=== PATIENT | female | born 1980 | race Caucasian/White ===

== ENCOUNTER → 2022-03-06 11:29 | Outpatient (CLI) | payer OTHER, MEDICAID, SELFPAY ==
--- NOTE | 2022-03-06 11:30 | DI.MG.S_ITS ---
BILATERAL DIGITAL SCREENING MAMMOGRAM 3D/2D WITH CAD: 03/06/2022 CLINICAL: Routine screening. Baseline exam. No prior exams were available for comparison. Both breasts are heterogeneously dense, which may obscure small masses (category c / 51-75% glandular tissue). Current study was also evaluated with a Computer Aided Detection (CAD) system. No significant masses, calcifications, or other findings are seen in either breast. IMPRESSION: NEGATIVE There is no mammographic evidence of malignancy. A 1 year screening mammogram is recommended. Based on the Tyrer Cuzick model (a risk assessment model) the patient's lifetime risk is 11.7% and her 10 year risk is 1.6%. According to the ACR, ACS, and NCCN guidelines, an annual breast MRI exam along with mammogram is recommended if the patient's lifetime risk is 20% or greater. This exam was interpreted at Station ID: [id number]. NOTE: For mammograms, a report in lay terms will be sent to the patient. Approximately 15% of breast malignancies will not be visualized mammographically. In the management of a palpable breast mass, a negative mammogram must not discourage biopsy of a clinically suspicious lesion. Electronically Signed By: Raul Bower M.D., jr/gabriel:03/08/2022 11:22:31 letter sent: Normal Exam ACR BI-RADS Category 1: Negative 3341F
== END ==
PROVIDERS: PCP Family Medicine; Referring Provider Physician Assistant Medical; Visit Provider Physician Assistant Medical
DX: Z12.31 Encounter for screening mammogram for malignant neoplasm of breast (principal)
CPT/HCPCS: 77063; 77067

== ENCOUNTER → 2022-09-07 12:37 | Outpatient (CLI) | payer OTHER, MEDICAID, SELFPAY ==
--- NOTE | 2022-09-07 12:40 | DI.RAD.S_ITS ---
PROCEDURE: XR HAND RT MIN 3V INDICATIONS: thumb injury. Pain. TECHNIQUE: 3 views of the hand(s) acquired. COMPARISON: None. FINDINGS: Bones: No fractures or dislocations. Carpal bones are normally aligned. No suspicious bony lesions. Soft tissues: No suspicious soft tissue calcifications. IMPRESSION: No fracture. No osseous lesion. If symptoms and/or clinical suspicion for pathology persists, further assessment with repeat radiographs (7-10 days) or advanced imaging (e.g. CT, MRI or bone scan) should be considered. Dictated by: Latoya Chen MD, PhD on 09/07/2022 at 13:38 Approved by: Latoya Chen MD, PhD on 09/07/2022 at 13:39
== END ==
PROVIDERS: PCP Family Medicine; Referring Provider Nurse Practitioner Family; Visit Provider Nurse Practitioner Family
DX: S69.91XA Unspecified injury of right wrist, hand and finger(s), initial encounter (principal); X58.XXXA Exposure to other specified factors, initial encounter
CPT/HCPCS: 73130

== ENCOUNTER → 2023-05-20 11:03 | Outpatient (CLI) | payer OTHER, MEDICAID, SELFPAY ==
--- NOTE | 2023-05-20 11:05 | DI.MG.S_ITS ---
BILATERAL DIGITAL SCREENING MAMMOGRAM 3D/2D WITH CAD: 05/20/2023 CLINICAL: Routine screening. Comparison is made to exam dated: 03/06/2022 [facility]. Both breasts are extremely dense, which lowers the sensitivity of mammography (category d />75% glandular tissue). Current study was also evaluated with a Computer Aided Detection (CAD) system. No significant masses, calcifications, or other findings are seen in either breast. There has been no significant interval change. IMPRESSION: NEGATIVE There is no mammographic evidence of malignancy. A 1 year screening mammogram is recommended. Based on the Tyrer Cuzick model (a risk assessment model) the patient's lifetime risk is 17.3% and her 10 year risk is 2.6%. According to the ACR, ACS, and NCCN guidelines, an annual breast MRI exam along with mammogram is recommended if the patient's lifetime risk is 20% or greater. This exam was interpreted at Station ID: [id number]. NOTE: For mammograms, a report in lay terms will be sent to the patient. Approximately 15% of breast malignancies will not be visualized mammographically. In the management of a palpable breast mass, a negative mammogram must not discourage biopsy of a clinically suspicious lesion. Electronically Signed By: Darcy Coronado M.D., PH.D rodriguez/gabriel:05/21/2023 01:07:35 letter sent: Normal Exam ACR BI-RADS Category 1: Negative 3341F
== END ==
PROVIDERS: PCP Family Medicine; Referring Provider Family Medicine; Visit Provider Family Medicine
DX: Z12.31 Encounter for screening mammogram for malignant neoplasm of breast (principal)
CPT/HCPCS: 77063; 77067

== ENCOUNTER → 2023-05-23 13:23 | Outpatient (CLI) | payer OTHER, MEDICAID, SELFPAY ==
--- NOTE | 2023-05-23 13:25 | DI.US.S_ITS ---
PROCEDURE: US PELVIC COMPLETE INDICATIONS: Pelvic pain bilateral, dysmenorrhea, menorrhagia TECHNIQUE: Real-time scanning was performed of the pelvic organs, with image documentation. Additional endovaginal scanning was necessary due to incomplete visualization of the adnexal and endometrial structures by transabdominal scanning. COMPARISON: None. FINDINGS: Uterus: Uterus is anteverted and normal in size at 8.3 x 5.6 x 4.6 cm. The myometrium is homogeneous. The endometrium measures 9 mm combined thickness. Ovaries: The right ovary measures 2.3 x 2.2 x 1.4 cm. The left ovary measures 2.4 x 2.2 x 1.7 cm. The ovaries have a normal sonographic appearance. Less than 12 follicles can be seen in each ovary. No adnexal masses are seen. There is a dominant 1.7 cm follicle within the left ovary. Other: No pathologic free abdominal or pelvic fluid. IMPRESSION: 1. Unremarkable pelvic ultrasound in a premenopausal female. We strive to produce accurate, complete, and clear reports of imaging services. To assist us in improving patient care, this report was composed using standard report templates and voice recognition software. Therefore, it may contain abnormal punctuation, insertions and/or omissions. Occasional wrong-word or sound-alike substitutions may occur. Though we review the report and make efforts to correct it, we do recommend that the report be read carefully in proper context to recognize any text inaccuracies. Dictated by: Kindra Berry M.D. on 05/23/2023 at 15:23 Approved by: Kindra Berry M.D. on 05/23/2023 at 15:24
== END ==
PROVIDERS: PCP Family Medicine; Referring Provider Physician Assistant Medical; Visit Provider Physician Assistant Medical
DX: N92.0 Excessive and frequent menstruation with regular cycle (principal); N94.6 Dysmenorrhea, unspecified; R10.2 Pelvic and perineal pain
CPT/HCPCS: 76830; 76856; 93975

== ENCOUNTER → 2023-07-15 11:47 | Outpatient (CLI) | payer OTHER, SELFPAY ==
--- NOTE | 2023-07-15 11:48 | DI.RAD.S_ITS ---
PROCEDURE: XR LUMBAR SPINE 2-3V INDICATIONS: pain in back and hip TECHNIQUE: 3 views of the lumbar spine were acquired. COMPARISON: None. FINDINGS: Bones: 5 [id number] vertebrae are present. There is normal bony alignment. No vertebral body compression fractures. No suspicious bony lesions. Soft tissues: Overlying bowel gas pattern is normal. No suspicious soft tissue calcifications. IMPRESSION: No acute bony abnormality. Dictated by: Kindra Berry M.D. on 07/15/2023 at 16:33 Approved by: Kindra Berry M.D. on 07/15/2023 at 16:33
--- NOTE | 2023-07-15 11:48 | DI.RAD.S_ITS ---
PROCEDURE: XR PELVIS 1-2V INDICATIONS: pain in back and hip TECHNIQUE: Single view(s) of the pelvis acquired. COMPARISON: None. FINDINGS: Bones: No fractures or dislocations. No suspicious bony lesions. Soft tissues: Visualized bowel gas pattern is normal. No suspicious soft tissue calcifications. IMPRESSION: No acute bony abnormality. Dictated by: Kindra Berry M.D. on 07/15/2023 at 16:32 Approved by: Kindra Berry M.D. on 07/15/2023 at 16:32
== END ==
PROVIDERS: PCP Family Medicine; Referring Provider Family Medicine; Visit Provider Family Medicine
DX: R10.2 Pelvic and perineal pain (principal); M54.50 Low back pain, unspecified; G89.29 Other chronic pain
CPT/HCPCS: 72100; 72170

== ENCOUNTER 2023-08-25 11:19 | Day surgery (SDC) | payer OTHER, SELFPAY ==
[2023-08-23 08:25] VITALS: BMI 20.7
[2023-08-25] VITALS (10 sets, daily range): BP systolic 102–116; BP diastolic 49–72; PULSE 59–86; RESP 12–18; TEMP 36.6–37.1; O2SAT 95–100; BMI 20.5
--- NOTE | 2023-08-25 | PATH_ITS ---
[facility] Accession Number: [id number] No. of containers..02 Tissue . 01 Material submitted: . PART A: fallopian tube - BILATERAL FALLOPIAN TUBES PART B: endometrium - ENDOMETRIAL CURETTINGS . 01 Diagnosis: A. BILATERAL FALLOPIAN TUBES, SALPINGECTOMY: Complete cross section of bilateral fimbriated fallopian tubes with benign paratubal cysts. . B. ENDOMETRIUM, CURETTINGS: Proliferative endometrium. No atypical hyperplasia, and no malignancy. MRV 08/31/2023 1334 Local . 01 Electronically signed: . Vicki Mckay MD, Pathologist NPI- [id number] . 01 Gross description: . A. Received in formalin, labeled with the patient's name, , and bilateral fallopian tubes, and consists of two, unoriented, fimbriated fallopian tubes measuring 6.5 x 0.6 cm and 6.7 x 0.8 cm, respectively. Both tubes have violaceous, smooth serosa with cystic structures ranging from 0.1 to 1.0 cm in greatest dimension, filled with kincaid serous fluid. Sectioning reveals unremarkable stellate lumen. Mechanical Engineering Lecturer sections to include one-half of bisected fimbriae and cross sections are submitted as follows: A1: Longer fallopian tube. A2: Mitchells fallopian tube. B. Received in formalin, labeled with the patient's name, , and endometrial curetting, and consists of multiple, kincaid, soft tissue fragments admixed with mucohemorrhagic material aggregating to 2.5 x 1.7 x 0.2 cm. Filtered and submitted entirely in cassette B1. ([id number]) /MRV 08/26/2023 1452 Local . 01 Pathologist provided ICD-10: N93.9, Z30.2 . 01 CPT . 282082, 728373 Specimen Comment: A courtesy copy of this report has been sent to [phone] Performed at: 01 [facility] [address] [place] [address] [id number] MD Fco Prado MD Phone: [phone]
[2023-08-25] MEDS: ACETAMINOPHEN 325 MG TABLET 975 MG PO (11:52)
[2023-08-25] MEDS: SCOPOLAMINE 1 PATCH TOP (12:00)
[2023-08-25] MEDS: LACTATED RINGERS 1,000 ML 42 ML IV ×2 (12:03→14:53)
--- NOTE | 2023-08-25 12:34 | SUR.OPER ---
Lithotomy on padded OR bed, head on pillow, arms padded and tucked at sides. Legs secured in padded yellow fins stirrups.
--- NOTE | 2023-08-25 13:02 | PM.PREOP ---
Pre-operative Note Interval Note History & Physical reviewed/Exam performed by Physician: Yes Changes to H&P: No H&P completed within 30 days and has changed as indicated here:: 08/17/23
[2023-08-25] MEDS: CEFAZOLIN 2 GM/100 ML PREMIX 100 ML IV (13:12)
[2023-08-25] MEDS: BUPIVACAINE 0.5% (PF) 30 ML, EPINEPHrine 0.15 MG INJ (13:40)
--- NOTE | 2023-08-25 16:07 | PM.GYNOP.1 ---
Operative Date/Time/Diagnoses Date of procedure: 08/25/23 Time of procedure: 16:07 Pre-op diagnosis: Pelvic pain Desires permanent sterilization Menorrhagia Symptomatic cystocele and rectocele Left labial cyst Post-op diagnosis: same Procedure & Clinicians Procedure: Procedures Operation Date: 08/25/23 12:30 Actual Procedure Side Surgeon melissa Diehl Laparoscopy, bilateral salpingectomy,fulgeration of endometriosis, excision left labial cyst, D&C, hysteroscopy with endometrial novasure ablation Nelia Mcgee MD s Anterior/Posterior Repair, sacrospinous ligament fixation, perineorhaphy Not Applicable Nelia Mcgee MD Indications: 42-year-old 5 para 3 with pelvic pain, desires permanent sterilization, has menorrhagia, and has a symptomatic cystocele and rectocele. Surgeon: Nelia Mcgee Package Dyeing Machine Operator: Lyndsey Cottrell Anesthesia Type: General and Local Operative Notes Findings: Endometriosis of the posterior cul de sac and left uterosacral ligament Normal uterus, tubes and ovaries Normal appendix Normal liver and gallbladder Third degree cystocele Third degree rectocele Second degree uterine prolapse Closure Type: primary Specimen(s): left tube and right tube Applied: catheter (to continuous drainage) and other (betadine moistened vaginal packing ) Estimated blood loss (mL): 75 Blood products transfused: none Procedure in detail: The patient was taken to the operating room where she was placed in the dorsal supine position. After adequate general endotracheal anesthesia was achieved, she was placed in the dorsal lithotomy position, and prepped and draped in the usual sterile fashion. A time-out was performed. A bivalve speculum was placed into the vagina and the anterior lip of the cervix was grasped with a single-tooth tenaculum. The cervical os was sequentially dilated until the Zumi uterine manipulator could pass easily into the endometrial cavity. The single-tooth tenaculum was removed from the anterior lip of the cervix. The bivalve speculum was removed from the vagina. Attention was then turned to the abdomen where 4 cc of 0.25% Marcaine with epinephrine were injected in the umbilical fold. A 5 mm incision was made. The Veress needle was placed into the peritoneal cavity, and its placement confirmed by aspiration and drop test. The abdominal cavity was insufflated with 3 L of CO2. The Veress needle was removed, and a 5 mm trocar was placed without difficulty. Two other incisions were made 4 cm lateral to the midline after 4 cc of 0.25% Marcaine with epinephrine were injected. Two 5 mm trocars were placed under direct visualization. The pelvis and abdomen were examined with findings noted above. The right tube was grasped with an atraumatic grasper. Using the power seal, the mesosalpinx was cauterized and cut all the way down to the cornua of the uterus. The tube was removed through the right lateral trocar. The left tube was then grasped with an atraumatic grasper. Using the power seal, the mesosalpinx was cauterized and cut all the way down to the cornua of the uterus. The tube was removed through the left lateral trocar. Hemostasis was achieved. There was found to be proximally 7 endometriotic lesions in the posterior cul-de-sac on the right side and on the left uterosacral ligament. These were cauterized with the spatula cautery. The instruments were removed from the abdomen. The CO2 was allowed to escape. The incisions were closed with 4-0 Monocryl in a subcuticular fashion. Steri-Strips and Allevyn dressings were placed. Attention was then turned to the vagina where the Zumi uterine manipulator was removed from the uterus. A weighted speculum was placed into the vagina. Narrow Allis clamps were placed at the base of the cystocele. 5 cc of 0.25% Marcaine with epinephrine were injected between the 2 Allis clamps and an incision was made with a #10 blade. Wide Allis clamps were placed at the midline of the cystocele. 10 cc of 0.25% Marcaine with epinephrine were injected submucosally. The mucosa was undermined and excised in the midline moving the wide Allis clamps to the edges of the mucosa. The fascia was dissected off of the mucosa using a # 10 blade and an open moistened Ray-Bry. The fascia was reapproximated with 0 Vicryl with mattress sutures. The excess vaginal mucosa was excised. The mucosa was closed with simple interrupted sutures using 2-0 Vicryl including the underlying fascia to close the space. Hemostasis was achieved. The urine was clear. The weighted speculum was removed from the vagina. Narrow Allis clamps were placed at the mucocutaneous junction. 6 cc of 0.25% Marcaine with epinephrine were injected between the 2 Allis clamps along the perineum. A triangular piece of tissue was excised between the 2 Allis clamps extending down onto the perineal body. Wide Allis clamps were placed in the midline of the rectocele. 10 cc of 0.25% Marcaine with epinephrine were injected submucosally. The mucosa was undermined with the Metzenbaum scissors and the wide Allis clamps were moved to the mucosal edges. The fascia was dissected off of the mucosa using a #10 blade and an open moistened Ray-Bry. The right sacral spinous ligament was identified and using blunt dissection was cleared of adventitia. Using the Capio needle, the Prolene suture was placed into the right sacral spinous ligament, 2 fingerbreadths away from the spine. This was tagged with a hemostat. The other end of the suture with a curved needle was placed into the cervix at the 8 o'clock position. This was included in the tag. The posterior fascia was reapproximated with 0 Vicryl in mattress sutures. After 3-4 of those were placed, the sacral spinous ligament tag was tied down suspending the cervix. The sutures were cut. The remainder of the fascia was reapproximated. The excess vaginal mucosa was excised. The mucosa was reapproximated with simple interrupted sutures with 2-0 Vicryl including the underlying fascia to close the space. At the perineum 0 Vicryl was placed to approximate the levators. The perineum was closed with 2-0 Vicryl with simple interrupted sutures. The skin was closed with 2-0 Vicryl in simple interrupted sutures. Hemostasis was achieved. A Betadine moistened vaginal packing was placed into the vagina after a rectal exam was performed and there were no sutures palpable. The urine remained clear. Sponge, lap, and instrument counts were correct x2. The patient tolerated the procedure well, and was taken to PACU in stable condition. Complications: none Post-operative Condition: stable Disposition: PACU Plan for aftercare: To Acute Care after recovery
[2023-08-25] MEDS: OXYCODONE IR 5 MG TABLET PO ×2 (16:41→20:10)
[2023-08-25] MEDS: KETOROLAC 30 MG/ML VIAL IV ×2 (16:41→22:34)
[2023-08-25] MEDS: ACETAMINOPHEN 325 MG TABLET 650 MG PO ×2 (16:41→22:34)
[2023-08-25] MEDS: LACTATED RINGERS 1,000 ML 100 ML IV (16:42)
[2023-08-25] MEDS: ONDANSETRON 4 MG/2 ML INJ IV (16:42)
[2023-08-25] MEDS: DOCUSATE 100 MG CAPSULE 200 MG PO (20:11)
[2023-08-26] VITALS: BP 98/52; PULSE 65; RESP 16; TEMP 37.1; O2SAT 96
[2023-08-26] MEDS: KETOROLAC 30 MG/ML VIAL IV ×2 (05:45→10:54)
[2023-08-26] MEDS: ACETAMINOPHEN 325 MG TABLET 650 MG PO ×2 (05:46→10:54)
[2023-08-26 06:00] VITALS: BP 94/34; PULSE 73; RESP 16; TEMP 37.1; O2SAT 98
[2023-08-26 06:53] LABS: Add Manual Diff / Slide Review NO; Basophils Absolute Auto 0 /uL (0-100); Basophils Percent Auto 0.1 % (0-2); Eosinophils Absolute Auto 0 /uL (0-450); Hematocrit 34.4 % (36-46); Hemoglobin 11.5 g/dL (12.0-16.0); Lymphocytes Absolute Auto 2000 /uL (1100-4500); Mean Corpuscular HGB Conc 33.5 % (30-36); Mean Corpuscular Volume 89.7 fL (80-100); Monocytes Absolute Auto 700 /uL (0-900); Monocytes Percent Auto 6.3 % (3-14); Neutrophils Absolute Auto 8600 /uL (1500-7000); Neutrophils Percent Auto 75.6 % (50-75); Platelet Count 225 X10^3/uL (150-400); Red Blood Cell Count 3.83 X10^6/uL (4.0-5.2); Red Cell Distribution Width 13.3 % (11.6-14.8); White Blood Cell Count 11.3 X10^3/uL (4.5-11.0)
[2023-08-26 08:16] VITALS: BP 98/54; PULSE 50
[2023-08-26] MEDS: DOCUSATE 100 MG CAPSULE 200 MG PO (09:11)
--- NOTE | 2023-08-26 11:26 | PC.NURSE ---
Addendum entered by Shaneka Payton R.N. 08/26/23 12:04: Void at 1145 500mls PVR 3 Original Note: Void at 0800 175mls PVR 1 Void at 1000 200mls PVR 9
[2023-08-26 12:02] VITALS: BP 96/54; PULSE 58; RESP 18; TEMP 36.4; O2SAT 97
--- NOTE | 2023-08-26 13:25 | CM.DANOTE ---
Initial DCP Assessment Visit Reviewed EMR and team rounds for pt's medical status. Met with pt/spouse at bedside to introduce self and role. Pt found to be awake, dressed, and ready for d/c home within the next hour. She shares that she is comfortable and will have her to continue to help with her care/needs as she recovers post-op over the next several days. He will transport her home once the d/c order is ready. Payor: Alfredo Attending: Dr. Mcgee Pt is a 42 year-old F placed in OPB following her planned diagnostic laparoscopy/salpingectomy surgery. She has a PMH of menorrhagia, dysmenorrhea, left overain pain, and cystocele/rectorcele that have been symptomatic. She is recovering well and declines any d/c needs or in home support/resources. DCP will follow for any further evolving needs until she discharges. Discharge Planning/Care Management CM Discharge Assessment Start: 08/26/23 13:18 Freq: Status: Active Protocol: Document 08/26/23 13:18 DPL (Rec: 08/26/23 13:25 DPL [id number]) Discharge Planning Assessment Assigned Applications Packager CHRISTIE Eduardo Advance Directives? No History Provided By Patient,Medical Record Has Patient been admitted in last 30 No days? Prior Living Arrangements House Household Members spouse,children Type of transporation used prior to Drives own vehicle admit Independent with ADL's Yes Is patient alert and oriented? Yes Comment N/A Caregiver for Another Yes: children Comment N/A Comment No identified needs at this time. Comment OP surgery f/u. Barriers to Discharge No Discharge Plan Home Transportation Arrangement Spouse Referrals Initiated None needed Whiteboard Updated in Patient Room with Yes name and ext. # of Applications Packager Review Status In Process Please Provide Date Initial DC 08/26/23 Assessment Was Performed Pre-Anesthesia Assessment Start: 08/23/23 08:25 Freq: Status: Active Protocol: Document 08/23/23 08:25 CAB (Rec: 08/23/23 08:43 CAB [id number]) Pre-Anesthesia Assessment Patient Information Reviewed Via Chart Review Primary Care Provider John Post Seen Specialist in Last 12 Months Yes Specialist Seen Core Sticker Primary Language Gibraltarian Lamp Tester And Inspector Required No Height 165.1 cm Weight 56.699 kg Body Mass Index (BMI) 20.7 Barriers to Learning None Hx Anesthesia Reactions Pt does not have a previous surgical history Anesthesia Review Requested No School Cook No alcohol intake current Smoking Status Former smoker how long ago did patient quit smoking Quit 2019 Substance Use Type does not use History of Falling (Recent or History of No ) Patient is completely paralyzed or No completely immobile Mental Status Oriented to own ability Is patient on oxygen? No Hx Sleep Apnea No Currently Taking a Beta Tyson No Anti-Coagulant Therapy No Has a Forest Logistics Manager No Cardiac Testing No Hx Pacemaker/ICD No Pacemaker Rep Required? No Cardiac Clearance Received Not Applicable Urinary Catheter Present No Hx Urinary Self Catheterization No Diabetes No Patient No Lactating No Marital Status Lives With spouse,children Patient Discharge Plan Description Return Home
[2023-08-26] MEDS: OXYCODONE IR 5 MG TABLET PO (14:21)
--- NOTE | 2023-08-26 18:09 | PC.NURSE ---
Discharge: Pt has been up and amb in room. See other note for voids and PVR. Seen by MD and discharge instructions reviewed. Given packet and questions answered. Tolerates diet w/out problems. Voids w/out diff. Dressings are c/d/i to abd, received wound care instructions from MD. Pt did end up needing to take an oxycodone prior to leaving. This was effective for pain. Pt d/c to home via auto w/spouse. Voiced no concerns at time of d/c.
--- NOTE | 2023-09-07 22:40 | PM.DS.1 ---
History of Present Illness History of Present Illness Date Patient Seen: 08/26/23 Time Patient Seen: 13:30 Chief complaint: OPB Narrative: 42 year old POD #1. Discharge Providers Provider Discharge Date: 08/26/23 Primary care physician: John Post DO Discharge provider: Nelia Mcgee MD Summary Hospital Course Discharge Diagnosis: Pelvic pain Desires permanent sterilization Symptomatic cystocele and rectocele Left labial cyst Menorrhagia Diagnostic laparoscopy with fulguration of endometriosis D&C hysteroscopy with NovaSure endometrial ablation Anterior and posterior repair Sacral spinous ligament fixation Left labial cyst excision Hospital Course: Patient is a 42-year-old who presented on August 25, 2023 for scheduled diagnostic laparoscopy with possible fulguration of endometriosis, left labial cyst excision, D and C hysteroscopy with NovaSure endometrial ablation, anterior and posterior repair, sacral spinous ligament fixation. She underwent this procedure without complication. On postop day #1 patient was having some moderate pain in the morning. She was tolerating a diet. No nausea or vomiting. She voided with minimal postvoid residuals. By afternoon her pain was more manageable. And she was discharged home. Status at Discharge Cognitive/behavioral status at discharge: oriented Functional status at discharge: independent ambulation Overall status at discharge: patient is progressing back to baseline Time Spent with Patient Time spent: Less than 30 minutes Exam Vital Signs (past 8 hours): Oxygen Delivery Method Room Air Oxygen Flow Rate 0 Narrative Exam Narrative: Generally: Patient is sitting up in bed, no acute distress Lungs: Clear to auscultation bilaterally Cardiovascular: Regular rate and rhythm Abdomen: Soft and flat. Incision: Clean dry and intact with Allevyn dressings Extremities: No edema, negative Homans Objective Labs 08/26/23 05:45 PFSH Medical History (Updated 07/07/23 @ 11:41 by John Post DO) Lumbar region somatic dysfunction Segmental and somatic dysfunction of abdomen and other regions Uterine prolapse Pain in pelvis Sacral region somatic dysfunction Pelvic somatic dysfunction Chronic left-sided low back pain without sciatica Lump of right wrist Vertigo Painful menstrual periods Heavy menstrual period H/O hordeolum Left foot pain Surgical History (Updated 08/23/23 @ 08:42 by Samanta Chacon RN) No history of previous surgery Social History household members: spouse and children Smoking Status: Former smoker alcohol intake: current Discharge Assessment & Plan Assessment and Plan Assessment: Postop day # 1 doing very well Plan of Treatment: Discharge to home Follow-up 2 weeks Discharge Plan Discharge Plan Patient Disposition: Home Provider Discharge Comment: Call with fever, chills, redness or drainage around the incisions, or bleeding vaginally more than spotting to light Ibuprofen 600 mg every 6 hours Tylenol 650 mg every 6 hours Stool softeners until bowel returns to normal Use Argelia bottle when urinating to dilute the concentrated urine away from the suture lines Nursing Discharge Comment: May start Ibuprophen at 5:00pm. Discharge orders & Medications Discharge Orders: Discharge (Order); Ordered 08/26/23 Ordered By: Nelia Mcgee Prescriptions: Continued polymyxin B sulf-trimethoprim 10,000 unit- 1 mg/mL drops 2 drp EYE-BOTH QID Qty: 10 0RF cholecalciferol (vitamin D3) 100 mcg (4,000 unit) Capsule 1,000 unit PO DAILY turmeric 400 mg Capsule 400 mg PO DAILY ashwagandha root extract 500 mg Capsule 500 mg PO DAILY No Action oxycodone 5 mg tablet 5 mg PO Q4H PRN (Reason: pain) Qty: 20 0RF amoxicillin-pot clavulanate 875-125 mg tablet 1 tab PO BID Qty: 20 0RF ondansetron 4 mg tablet,disintegrating 4 mg PO Q6H PRN (Reason: nausea and vomiting) Qty: 10 0RF phenazopyridine [Pyridium] 100 mg tablet 100 mg PO TID PRN (Reason: pain) Qty: 10 0RF Medication counseling provided by Pharmacist: Yes Follow up/Referrals: Nelia Mcgee MD [Physician] - (Patient has postop visits already scheduled) Diet/Activity/Treatments Diet: Regular Activity: No heavy lifting for 6 weeks, nothing more than a gallon of milk Nothing in the vagina for 6 weeks Skin/Wound/Dressing Care Report to your healthcare provider any signs of infection, such as:: chills, fever, increased pain, unusual drainage and unusual redness Dressing: Remove outer pink dressings with attached gauze on Tuesday morning after a shower May shower daily Visit Report/Discharge Packet Instructions: Constipation, DI for Cystocele and Rectocele Repair, DI for Laparoscopy, How to Prevent Falls, DI for Endometrial Ablation, DI for Prescription Opioid Use, DI for Sacrospinous Fixation, DI for Laparoscopic Salpingectomy Stand Alone Forms: Patient Portal/API, Stroke Signs & Symptoms, Surgery Discharge Discharge Data Primary Care Provider: John Post Attending Provider: Nelia Mcgee
== END 2023-08-26 15:00 | disposition home or self-care (01) ==
LOC: OR 11:19 → AC 11:20
PROVIDERS: PCP Family Medicine; Referring Provider Obstetrics & Gynecology; Visit Provider Obstetrics & Gynecology
PROC: 0U5B4ZZ Destruction of Endometrium, Percutaneous Endoscopic Approach (ICD-10-PCS; CPT 58662; principal; 2023-08-25 12:30)
PROC: (CPT 57282; 2023-08-25 12:30)
DX: N92.1 Excessive and frequent menstruation with irregular cycle (principal); N94.6 Dysmenorrhea, unspecified; Z30.2 Encounter for sterilization; N81.2 Incomplete uterovaginal prolapse; N90.7 Vulvar cyst; N80.3C2 Endometriosis of the left uterosacral ligament, unspecified depth; N80.329 Endometriosis of the posterior cul-de-sac, unspecified depth; N83.8 Other noninflammatory disorders of ovary, fallopian tube and broad ligament
CPT/HCPCS: 57282; 58563; 58661; 58662; 57260; 36415; 85025; J0171; J0690; J1100; J1885; J2405; J2704; J3010

== ENCOUNTER → 2023-08-29 16:16 | Outpatient (CLI) | payer OTHER, SELFPAY ==
[2023-08-25 16:47] VITALS: BMI 20.5
--- NOTE | 2023-08-29 16:18 | DI.RAD.S_ITS ---
PROCEDURE: XR KUB INDICATIONS: ileus vs obstruction TECHNIQUE: One view of the abdomen acquired. COMPARISON: None. FINDINGS: Surgical changes and devices: None. Bowel: Bowel gas pattern is nonobstructive. Large amount of fecal material seen in the region of the descending colon, sigmoid colon and rectum. Soft tissues: No suspicious abdominal calcifications. Visualized solid organ contours appear normal in size. Bones: No suspicious bony lesions. IMPRESSION: Nonobstructive bowel gas pattern. Large amount of fecal material seen in the region of the descending colon through the rectum. Dictated by: Jerome Parks M.D. on 08/30/2023 at 9:55 Approved by: Jerome Parks M.D. on 08/30/2023 at 9:56
[2023-08-29 17:49] LABS: Add Manual Diff / Slide Review NO; Basophils Absolute Auto 0 /uL (0-100); Basophils Percent Auto 0.4 % (0-2); Eosinophils Absolute Auto 100 /uL (0-450); Eosinophils Percent Auto 0.7 % (2-4); Hematocrit 36.6 % (36-46); Hemoglobin 12.2 g/dL (12.0-16.0); Lymphocytes Absolute Auto 1500 /uL (1100-4500); Lymphocytes Percent Auto 19.8 % (25-40); Mean Corpuscular HGB Conc 33.2 % (30-36); Mean Corpuscular Hemoglobin 29.9 PG (26-34); Monocytes Absolute Auto 300 /uL (0-900); Monocytes Percent Auto 4.4 % (3-14); Neutrophils Absolute Auto 5700 /uL (1500-7000); Neutrophils Percent Auto 74.7 % (50-75); Platelet Count 224 X10^3/uL (150-400); Red Blood Cell Count 4.06 X10^6/uL (4.0-5.2); Red Cell Distribution Width 13.1 % (11.6-14.8); White Blood Cell Count 7.6 X10^3/uL (4.5-11.0)
== END ==
PROVIDERS: PCP Family Medicine; Referring Provider Obstetrics & Gynecology; Visit Provider Obstetrics & Gynecology
DX: G89.18 Other acute postprocedural pain (principal); R10.84 Generalized abdominal pain; R31.9 Hematuria, unspecified; T81.40XA Infection following a procedure, unspecified, initial encounter
CPT/HCPCS: 36415; 74018; 85025; 87077; 87086; 87186

== ENCOUNTER 2024-01-12 14:30 | Outpatient (RCR) | payer OTHER, SELFPAY ==
[2023-08-25 16:47] VITALS: BMI 20.5
[2023-11-09 16:50] VITALS: BMI 20.5
--- NOTE | 2024-01-03 16:47 | PT.OIE ---
Current Diagnoses Sacrococcygeal disorders, not elsewhere classified (01/03/24) Other specified disorders of muscle (01/03/24) Cystocele, unspecified (01/03/24) Rectocele (01/03/24) Unspecified dyspareunia (01/03/24) Past Medical History (Last Updated 12/07/23 @ 10:34 by John Post DO) Chronic left-sided low back pain without sciatica H/O hordeolum Heavy menstrual period Left foot pain Lumbar region somatic dysfunction Lump of right wrist Pain in pelvis Painful menstrual periods Pelvic somatic dysfunction Sacral region somatic dysfunction Sacroiliitis Segmental and somatic dysfunction of abdomen and other regions Uterine prolapse Vertigo Past Surgical History (Last Updated 08/23/23 @ 08:42 by Samanta Chacon RN) No history of previous surgery Visit Care Team Role Provider Type John Post DO Family Provider Physician Primary Care Provider Specialty: Family Practice Address: [address] [place] [address] Email: Nelia Mcgee MD Attending Provider Physician Referring Provider Specialty: Gynecology [employer] M[employer]ER OPERATOR Obstetrics Address: [address] [place] [address] Email: [email or web address] Physical Therapy Initial Evaluation PT-OP-A Visit Information Start: 01/03/24 11:14 Freq: Status: Active Protocol: Document 01/03/24 11:15 [facility] (Rec: 01/03/24 16:56 [facility] [id number]) Out-Patient Physical Therapy Visit Information Visit Information Visit Type Initial Evaluation Visit Start Time 11:15 Visit Stop Time 12:10 Visit Number 1 Evaluation Information Evaluation Date 01/03/24 PT-OP-B Current Condition Start: 01/03/24 11:14 Freq: Status: Active Protocol: Document 01/03/24 11:15 [facility] (Rec: 01/10/24 16:28 [facility] [id number]) Current Condition History of Current Condition Current Complaints Left sided SI pain History of Current Condition pt has a history of left sided low back pain. In August 2023 she underwent surgery for anterior/posterior repair with sacrospinous ligament fixation, bilateral salpingectomy, fulgeration of endometriosis and excision of left labia cyst. She is still having pain with intercourse. Prior to her surgery she was feeling a lot of pelvic pressure especially with sitting on her exercises bike. She note decreased c/o pelvic pressure however her SI joint pain on the left has not changed with surgery. Treatment Goals Patient/Caregiver Goals treatment goals include decreasing left sided SI pain PT-OP-C Subjective Start: 01/03/24 11:14 Freq: Status: Active Protocol: Document 01/03/24 11:15 [facility] (Rec: 01/03/24 11:44 [facility] [id number]) OP-PT Subjective Patient Comments Patient Comments history of low back pain, surgery in august for prolapse, anterior and posterior repair prior to surgery she would sit on her exercise bike and feel pressure down, intercourse was sore 3 vaginal deliveries with a tear on the first all natural deliveries left side SI pain, stabbing pain there and a clicking sound. pain with lumbar flexion at the left SI joint, pain with sleeping and has been laying on left side only OP-PT Pain Assessment Pain Assessment Grid Paper Pain Assessment Grid Completed Yes Location B anterior hip pain Intensity 3 Scale Used Numeric (0 - 10) Description Aching Description- Other worse with hip flexion and squatting left sided SI Intensity 8 Scale Used Numeric (0 - 10) Description- Other constant pain with anything she does over the left sided SI joint Frequency Daily PT-OP-F Manual Assessment Start: 01/03/24 11:14 Freq: Status: Active Protocol: Document 01/03/24 11:15 [facility] (Rec: 01/03/24 16:55 [facility] [id number]) Manual Assessments Soft Tissue Assessment Soft Tissue Mobility Assessment iliopsoas tightness R>L piriformis tightness R>L left lateral wall of the levator ani guarding suprapubic fascia tightness and tightness over the descending colon on the left side. Joint Mobility Assessment Joint Mobility Assessment + ASLR test with left SI unlocking with Devika lifts right LE PT-OP-I Pelvic Floor Start: 01/03/24 11:14 Freq: Status: Active Protocol: Document 01/03/24 16:50 [facility] (Rec: 01/03/24 16:54 [facility] [id number]) Pelvic Floor Assessment Pelvic Clock Pelvic Clock 3-6 Guarding,Tenderness,Tightness Pelvic Clock Other left sided pelvic floor guarding and tightness Contraction Ability Voluntary Contraction Moderate Voluntary Relaxation Moderate Manual Muscle Testing Left 3 Manual Muscle Testing Right 3 Manual Muscle Testing Anterior 3 Manual Muscle Testing Posterior 3 PT-OP-J Posture/Palpation/Skin Start: 01/03/24 11:14 Freq: Status: Active Protocol: Document 01/03/24 11:15 AM[facility] (Rec: 01/10/24 16:35 [facility] [id number]) Palpation Assessment Location descending colon Palpation Findings Soft Tissue Tightness,Muscle Guarding,Tenderness Palpation Details left side of abdominal wall over the descending colon there is fascial tightness and restrictions suprapubic fascia Palpation Findings Soft Tissue Tightness,Muscle Guarding,Tenderness left PSIS Palpation Findings Tenderness PT-OP-K Range of Motion Start: 01/10/24 16:44 Freq: Status: Active Protocol: Document 01/03/24 11:15 AM[facility] (Rec: 01/10/24 16:46 [facility] [id number]) Lumbar Spine Range of Motion Lumbar Spine Active Testing Position Standing Flexion 40 ROM Limitations Soft Tissue Tightness,Pain Comments increased pain with lumbar flexion in the left SI joint Hip Goniometric Range of Motion Hip Right Hip ROM WFL No Testing Position Supine Flexion w/Knee Flexed 115 left Hip ROM WFL No Testing Position Supine Flexion w/Knee Flexed 90 Hip ROM Limitations Hip ROM Limitations Soft Tissue Tightness,Pain Comments pain with PROM and AROM hip flexion in supine due to pinching on the left side PT-OP-Q Treatments Start: 01/03/24 11:14 Freq: Status: Active Protocol: Document 01/03/24 16:50 [facility] (Rec: 01/03/24 16:54 [facility] [id number]) Therapeutic Exercises Other Exercises modified down dog stretch Side bilateral Reps/Minutes hold 1-2 min Comments cues to hinge at the hips quadruped rock backs with manual hip posterior glide with towel Reps/Minutes x 10 res Comments Devika tolerated well, decreased hip pinching with self mobilization PT-OP-T Assessment and Plan Start: 01/03/24 11:14 Freq: Status: Active Protocol: Document 01/03/24 16:59 [facility] (Rec: 01/03/24 17:06 [facility] [id number]) Physical Therapy Assessment Rehab Potential Rehabilitation Potential Excellent Evaluation Complexity Number of Personal Factors/Comorbidities 0 Number of Body Systems Impaired 1-2 Clinical Presentation at Evaluation Stable Impairments Impairments Activity Tolerance,Functional Activities,Pain,Soft Tissue Mobility,Strength,Tone Goals 3 Impairment Decreased lumbar and hip flexion due to increased pain Short Term Goal (STG) Devika is able to perform double knee to chest stretch without c/o anterior hip pinching STG Duration 4 weeks Field Machinist Goal (LTG) Devika is able to perform a forward bend in standing without increased LBP and anterior hip pain LTG Duration 8 weeks 2 Impairment Decreased force closure of the SI joint with left sided SI joint unlocking with ASLR test on the right Short Term Goal (STG) Devika is educated in pelvic floor stabilization as well as ability to relax her pelvic floor at rest improving stability to the SI joint STG Duration 4 weeks Field Machinist Goal (LTG) Devika present with a negative ASLR test showing improved stability of the SI joint on the left LTG Duration 8 weeks+ 1 Impairment left sided SI pain rated 5-8/ 10 [facility] Goal (LTG) Devika reports a overall reducation in pain levels of the left SI joint LTG Duration 8 weeks+ Assessment Summary Assessment 43 year old female s/p laparoscopic B salpingectomy, fulgeration of endometriosis, excision left labial cyst, D&C hysteroscopy with endometrial novasure ablation, anterio/ posterior repar, sacrospinous ligament fixation on 08/25/2023 . Her chief complaints at this time are low back pain and pelvic pain with intercourse. Devika reports her back pain is primarily at the left SI joint and is constant despite activity. Her pain began in 2020 with a insidiuos onset. With evaluation today there is a + ASLR test for SI joint instability with the left side unlocking. There is left lateral wall of the pelvic floor guarding and pain to palpation. There is tightness in the suprapubic fascia and over the left anterior pelvic wall along the descending colon. Devika presents with guarding and tightness of the lumbar paraspinals and lumbar flexion increases her pain. She rates her low back pain as 5-8/10 She would benefit from pelvic floor MFR to help relax the left lateral wall of the levator ani as well as MFR for the suprapubic fascia and left side of the abdominal wall. Treatment will include SI joint stabilization and lumbar spine decompression. Devika is a good candidate for PT Physical Therapy Plan Frequency and Duration Frequency of Treatment 2x/Week Duration of treatment (weeks) 8 Plan of Care Start Date 01/03/24 Plan of Care End Date 02/28/24 Therapeutic Interventions Therapeutic Interventions Home Exercise Program,Manual Therapy,Patient/Caregiver Education,Self-Care/Home Management,Soft Tissue Mobilization,Therapeutic Exercises Modalities Biofeedback Next Visit Focus/Plan Next Note Type Treatment Note Next Visit Plan Begin fascia work on the left side of the pelvic clock, suprapubic fascia and left side of the abdominal wall, SI stabilization exercises
--- NOTE | 2024-01-03 16:48 | PT.OPPOC ---
Physical, Occupational & Speech Therapy At [facility] Current Diagnoses Sacrococcygeal disorders, not elsewhere classified (01/03/24) Other specified disorders of muscle (01/03/24) Cystocele, unspecified (01/03/24) Rectocele (01/03/24) Unspecified dyspareunia (01/03/24) Visit Care Team Role Provider Type John Post DO Family Provider Physician Primary Care Provider Specialty: Family Practice Address: [address] [place] [address], [id number] Email: Nelia Mcgee MD Attending Provider Physician Referring Provider Specialty: Gynecology WET PLANT OPERATOR Obstetrics Address: [address] [place] [address], [id number] Email: [email or web address] Plan Of Care PT-OP-B Current Condition Start: 01/03/24 11:14 Freq: Status: Active Protocol: Document 01/03/24 11:15 AM[facility] (Rec: 01/10/24 16:28 [facility] [id number]) Current Condition History of Current Condition Current Complaints Left sided SI pain History of Current Condition pt has a history of left sided low back pain. In August 2023 she underwent surgery for anterior/posterior repair with sacrospinous ligament fixation, bilateral salpingectomy, fulgeration of endometriosis and excision of left labia cyst. She is still having pain with intercourse. Prior to her surgery she was feeling a lot of pelvic pressure especially with sitting on her exercises bike. She note decreased c/o pelvic pressure however her SI joint pain on the left has not changed with surgery. Treatment Goals Patient/Caregiver Goals treatment goals include decreasing left sided SI pain PT-OP-T Assessment and Plan Start: 01/03/24 11:14 Freq: Status: Active Protocol: Document 01/03/24 16:59 [facility] (Rec: 01/03/24 17:06 [facility] [id number]) Physical Therapy Assessment Rehab Potential Rehabilitation Potential Excellent Evaluation Complexity Number of Personal Factors/Comorbidities 0 Number of Body Systems Impaired 1-2 Clinical Presentation at Evaluation Stable Impairments Impairments Activity Tolerance,Functional Activities,Pain,Soft Tissue Mobility,Strength,Tone Goals 3 Impairment Decreased lumbar and hip flexion due to increased pain Short Term Goal (STG) Devika is able to perform double knee to chest stretch without c/o anterior hip pinching STG Duration 4 weeks Senior Living Goal (LTG) Devika is able to perform a forward bend in standing without increased LBP and anterior hip pain LTG Duration 8 weeks 2 Impairment Decreased force closure of the SI joint with left sided SI joint unlocking with ASLR test on the right Short Term Goal (STG) Devika is educated in pelvic floor stabilization as well as ability to relax her pelvic floor at rest improving stability to the SI joint STG Duration 4 weeks Senior Living Goal (LTG) Devika present with a negative ASLR test showing improved stability of the SI joint on the left LTG Duration 8 weeks+ 1 Impairment left sided SI pain rated 5-8/ 10 [facility] Goal (LTG) Devika reports a overall reducation in pain levels of the left SI joint LTG Duration 8 weeks+ Assessment Summary Assessment 43 year old female s/p laparoscopic B salpingectomy, fulgeration of endometriosis, excision left labial cyst, D&C hysteroscopy with endometrial novasure ablation, anterio/ posterior repar, sacrospinous ligament fixation on 08/25/2023 . Her chief complaints at this time are low back pain and pelvic pain with intercourse. Devika reports her back pain is primarily at the left SI joint and is constant despite activity. Her pain began in 2020 with a insidiuos onset. With evaluation today there is a + ASLR test for SI joint instability with the left side unlocking. There is left lateral wall of the pelvic floor guarding and pain to palpation. There is tightness in the suprapubic fascia and over the left anterior pelvic wall along the descending colon. Devika presents with guarding and tightness of the lumbar paraspinals and lumbar flexion increases her pain. She rates her low back pain as 5-8/10 She would benefit from pelvic floor MFR to help relax the left lateral wall of the levator ani as well as MFR for the suprapubic fascia and left side of the abdominal wall. Treatment will include SI joint stabilization and lumbar spine decompression. Devika is a good candidate for PT Physical Therapy Plan Frequency and Duration Frequency of Treatment 2x/Week Duration of treatment (weeks) 8 Plan of Care Start Date 01/03/24 Plan of Care End Date 02/28/24 Therapeutic Interventions Therapeutic Interventions Home Exercise Program,Manual Therapy,Patient/Caregiver Education,Self-Care/Home Management,Soft Tissue Mobilization,Therapeutic Exercises Modalities Biofeedback Next Visit Focus/Plan Next Note Type Treatment Note Next Visit Plan Begin fascia work on the left side of the pelvic clock, suprapubic fascia and left side of the abdominal wall, SI stabilization exercises Plan of Care Dates Plan of Care Start Date 01/03/24 Plan of Care End Date 02/28/24 Electronically Signed by: Alfreda Benitez, PT 01/10/24 [id number] If you are in agreement with this Plan of Care, please return a signed and dated copy. I have reviewed this Plan of Care and certify that the skilled therapy services above are required to meet the patient?s needs. Physician Signature Date Printed Name and Credentials Clinical Instructor Signature Printed Name and Credentials
--- NOTE | 2024-01-12 17:34 | PT.OTN ---
Current Diagnoses Sacrococcygeal disorders, not elsewhere classified (01/12/24) Other specified disorders of muscle (01/12/24) Cystocele, unspecified (01/12/24) Rectocele (01/12/24) Unspecified dyspareunia (01/12/24) Physical Therapy Treatment Note PT-OP-A Visit Information Start: 01/03/24 11:14 Freq: Status: Active Protocol: Document 01/12/24 14:30 [facility] (Rec: 01/12/24 17:34 [facility] [id number]) Out-Patient Physical Therapy Visit Information Visit Information Visit Type Treatment Note Visit Start Time 14:30 Visit Stop Time 15:15 Visit Number 2 PT-OP-B Current Condition Start: 01/03/24 11:14 Freq: Status: Active Protocol: Document 01/03/24 11:15 [facility] (Rec: 01/10/24 16:28 [facility] [id number]) Current Condition History of Current Condition Current Complaints Left sided SI pain History of Current Condition pt has a history of left sided low back pain. In August 2023 she underwent surgery for anterior/posterior repair with sacrospinous ligament fixation, bilateral salpingectomy, fulgeration of endometriosis and excision of left labia cyst. She is still having pain with intercourse. Prior to her surgery she was feeling a lot of pelvic pressure especially with sitting on her exercises bike. She note decreased c/o pelvic pressure however her SI joint pain on the left has not changed with surgery. Treatment Goals Patient/Caregiver Goals treatment goals include decreasing left sided SI pain PT-OP-C Subjective Start: 01/03/24 11:14 Freq: Status: Active Protocol: Document 01/12/24 14:30 [facility] (Rec: 01/12/24 17:34 [facility] [id number]) OP-PT Subjective Patient Comments Patient Comments pt notes she is really frustrated as she has seen many practitioners and she is not getting any pain relief. She notes her hips feels worse and she is in constant pain in her left SI joint. PT-OP-F Manual Assessment Start: 01/03/24 11:14 Freq: Status: Active Protocol: Document 01/03/24 11:15 [facility] (Rec: 01/03/24 16:55 [facility] [id number]) Manual Assessments Soft Tissue Assessment Soft Tissue Mobility Assessment iliopsoas tightness R>L piriformis tightness R>L left lateral wall of the levator ani guarding suprapubic fascia tightness and tightness over the descending colon on the left side. Joint Mobility Assessment Joint Mobility Assessment + ASLR test with left SI unlocking with Devika lifts right LE PT-OP-I Pelvic Floor Start: 01/03/24 11:14 Freq: Status: Active Protocol: Document 01/03/24 16:50 [facility] (Rec: 01/03/24 16:54 [facility] [id number]) Pelvic Floor Assessment Pelvic Clock Pelvic Clock 3-6 Guarding,Tenderness,Tightness Pelvic Clock Other left sided pelvic floor guarding and tightness Contraction Ability Voluntary Contraction Moderate Voluntary Relaxation Moderate Manual Muscle Testing Left 3 Manual Muscle Testing Right 3 Manual Muscle Testing Anterior 3 Manual Muscle Testing Posterior 3 PT-OP-J Posture/Palpation/Skin Start: 01/03/24 11:14 Freq: Status: Active Protocol: Document 01/03/24 11:15 [facility] (Rec: 01/10/24 16:35 [facility] [id number]) Palpation Assessment Location descending colon Palpation Findings Soft Tissue Tightness,Muscle Guarding,Tenderness Palpation Details left side of abdominal wall over the descending colon there is fascial tightness and restrictions suprapubic fascia Palpation Findings Soft Tissue Tightness,Muscle Guarding,Tenderness left PSIS Palpation Findings Tenderness PT-OP-K Range of Motion Start: 01/10/24 16:44 Freq: Status: Active Protocol: Document 01/03/24 11:15 [facility] (Rec: 01/10/24 16:46 [facility] [id number]) Lumbar Spine Range of Motion Lumbar Spine Active Testing Position Standing Flexion 40 ROM Limitations Soft Tissue Tightness,Pain Comments increased pain with lumbar flexion in the left SI joint Hip Goniometric Range of Motion Hip Right Hip ROM WFL No Testing Position Supine Flexion w/Knee Flexed 115 left Hip ROM WFL No Testing Position Supine Flexion w/Knee Flexed 90 Hip ROM Limitations Hip ROM Limitations Soft Tissue Tightness,Pain Comments pain with PROM and AROM hip flexion in supine due to pinching on the left side PT-OP-Q Treatments Start: 01/03/24 11:14 Freq: Status: Active Protocol: Document 01/12/24 14:30 [facility] (Rec: 01/12/24 17:34 [facility] [id number]) Manual Therapy Treatment Soft Tissue Mobilization adductor release on the left side Mobilization Type Manual Lymphatic Drainage Intensity/Depth Moderate Body Position Hooklying Comments very guarded and tight in the adductors on the left side at the pubic symphysis attachment fascial release of the left side of abdominal wall Mobilization Type Myofascial Release Intensity/Depth Moderate Body Position Hooklying Manual Techniques prone sacral counternutation Body Position Prone Comments mobilization of the sacrum into counter nutation PT-OP-T Assessment and Plan Start: 01/03/24 11:14 Freq: Status: Active Protocol: Document 01/12/24 14:30 [facility] (Rec: 01/12/24 17:34 [facility] [id number]) Physical Therapy Assessment Assessment Summary Assessment Devika notes she has not experiencied any relief and she has seen chiropractic and PT and osteopath. She is feeling frustrated and not sure where to turn. I did talk to her about trying exercise in the pool as everything is hurting her. We will check in next visit as to if she has any relief with the fascial work I started today. She is guarded and tight in the left levator ani, left adductors and left side of abdominal wall. Her sacrum is in a nutated position Physical Therapy Plan Frequency and Duration Frequency of Treatment 2x/Week Duration of treatment (weeks) 8 Plan of Care Start Date 01/03/24 Plan of Care End Date 02/28/24 Therapeutic Interventions Therapeutic Interventions Home Exercise Program,Manual Therapy,Patient/Caregiver Education,Self-Care/Home Management,Soft Tissue Mobilization,Therapeutic Exercises Modalities Biofeedback Next Visit Focus/Plan Next Note Type Treatment Note Next Visit Plan check in with how Devika did with fascial work this visit and give information on pelvic wand for self mobilization
--- NOTE | 2024-08-16 11:26 | PT.OPDS ---
Current Diagnoses Sacrococcygeal disorders, not elsewhere classified (01/12/24) Other specified disorders of muscle (01/12/24) Cystocele, unspecified (01/12/24) Rectocele (01/12/24) Unspecified dyspareunia (01/12/24) Visit Care Team Role Provider Type John Post DO Family Provider Physician Primary Care Provider Specialty: Family Practice Address: [address] [place] [address], [id number] Email: Nelia Mcgee MD Attending Provider Physician Referring Provider Specialty: Gynecology [facility]etric[facility] Address: [address] [place] [id number] Email: [email or web address] Visit Number Visit Number 2 Discharge Summary PT-OP-B Current Condition Start: 01/03/24 11:14 Freq: Status: Active Protocol: Document 01/03/24 11:15 [facility] (Rec: 01/10/24 16:28 [facility] [id number]) Current Condition History of Current Condition Current Complaints Left sided SI pain History of Current Condition pt has a history of left sided low back pain. In August 2023 she underwent surgery for anterior/posterior repair with sacrospinous ligament fixation, bilateral salpingectomy, fulgeration of endometriosis and excision of left labia cyst. She is still having pain with intercourse. Prior to her surgery she was feeling a lot of pelvic pressure especially with sitting on her exercises bike. She note decreased c/o pelvic pressure however her SI joint pain on the left has not changed with surgery. Treatment Goals Patient/Caregiver Goals treatment goals include decreasing left sided SI pain PT-OP-C Subjective Start: 01/03/24 11:14 Freq: Status: Active Protocol: Document 01/12/24 14:30 [facility] (Rec: 01/12/24 17:34 [facility] [id number]) OP-PT Subjective Patient Comments Patient Comments pt notes she is really frustrated as she has seen many practitioners and she is not getting any pain relief. She notes her hips feels worse and she is in constant pain in her left SI joint. PT-OP-F Manual Assessment Start: 01/03/24 11:14 Freq: Status: Active Protocol: Document 01/03/24 11:15 [facility] (Rec: 01/03/24 16:55 [facility] [id number]) Manual Assessments Soft Tissue Assessment Soft Tissue Mobility Assessment iliopsoas tightness R>L piriformis tightness R>L left lateral wall of the levator ani guarding suprapubic fascia tightness and tightness over the descending colon on the left side. Joint Mobility Assessment Joint Mobility Assessment + ASLR test with left SI unlocking with Devika lifts right LE PT-OP-I Pelvic Floor Start: 01/03/24 11:14 Freq: Status: Active Protocol: Document 01/03/24 16:50 [facility] (Rec: 01/03/24 16:54 [facility] [id number]) Pelvic Floor Assessment Pelvic Clock Pelvic Clock 3-6 Guarding,Tenderness,Tightness Pelvic Clock Other left sided pelvic floor guarding and tightness Contraction Ability Voluntary Contraction Moderate Voluntary Relaxation Moderate Manual Muscle Testing Left 3 Manual Muscle Testing Right 3 Manual Muscle Testing Anterior 3 Manual Muscle Testing Posterior 3 PT-OP-J Posture/Palpation/Skin Start: 01/03/24 11:14 Freq: Status: Active Protocol: Document 01/03/24 11:15 [facility] (Rec: 01/10/24 16:35 [facility] [id number]) Palpation Assessment Location descending colon Palpation Findings Soft Tissue Tightness,Muscle Guarding,Tenderness Palpation Details left side of abdominal wall over the descending colon there is fascial tightness and restrictions suprapubic fascia Palpation Findings Soft Tissue Tightness,Muscle Guarding,Tenderness left PSIS Palpation Findings Tenderness PT-OP-K Range of Motion Start: 01/10/24 16:44 Freq: Status: Active Protocol: Document 01/03/24 11:15 [facility] (Rec: 01/10/24 16:46 [facility] [id number]) Lumbar Spine Range of Motion Lumbar Spine Active Testing Position Standing Flexion 40 ROM Limitations Soft Tissue Tightness,Pain Comments increased pain with lumbar flexion in the left SI joint Hip Goniometric Range of Motion Hip Right Hip ROM WFL No Testing Position Supine Flexion w/Knee Flexed 115 left Hip ROM WFL No Testing Position Supine Flexion w/Knee Flexed 90 Hip ROM Limitations Hip ROM Limitations Soft Tissue Tightness,Pain Comments pain with PROM and AROM hip flexion in supine due to pinching on the left side PT-OP-T Assessment and Plan Start: 07/23/24 11:14 Freq: Status: Active Protocol: Document 08/16/24 11:23 [facility] (Rec: 08/16/24 11:25 [facility] [id number]) Physical Therapy Assessment Assessment Summary Assessment Devika was seen for 2 visits in PT and was not experiencing any relief of her back pain symptoms. She did not wish to continue PT. Physical Therapy Plan Discharge Physical Therapy Discharge Reasons Patient Request
== END 2024-08-16 15:10 | disposition home or self-care (01) ==
LOC: PHYS 14:30
PROVIDERS: Family Provider Family Medicine; PCP Family Medicine; Referring Provider Obstetrics & Gynecology; Visit Provider Obstetrics & Gynecology
DX: N81.10 Cystocele, unspecified (principal); N81.6 Rectocele; M62.89 Other specified disorders of muscle; M53.3 Sacrococcygeal disorders, not elsewhere classified; N94.10 Unspecified dyspareunia
CPT/HCPCS: 97110; 97140; 97161

== ENCOUNTER → 2024-02-10 19:37 | Outpatient (CLI) | payer BC, SELFPAY ==
[2023-11-09 16:50] VITALS: BMI 20.5
--- NOTE | 2024-02-10 19:38 | DI.MRI.S_ITS ---
PROCEDURE: MR PELVIS WO CON INDICATIONS: SI pain TECHNIQUE: Noncontrast axial and oblique coronal T1 spin echo and STIR through the sacroiliac joints. COMPARISON: [facility], CR, XR PELVIS 1-2V, 07/15/2023, 11:55. FINDINGS: Image quality: Excellent. Bones: The bilateral sacroiliac joints are unremarkable. No erosion, ankylosis, or effusion of either sacroiliac joint. Small bone island is seen in the left posterior iliac wing. There is patchy marrow edema of the right aspect of the distal sacral alar, inferior to the right sacroiliac joint, nonspecific and may represent mild marrow contusion (series 4, image 8). No acute fracture of the sacrum. Soft tissues: The sacral foramens are widely patent. The uterus is noted. Trace free pelvic fluid, likely physiologic in a patient of this age and gender. IMPRESSION: 1. Unremarkable bilateral sacroiliac joint. 2. Mild patchy marrow edema of the right inferior sacral alar, inferior to the right sacroiliac joint, nonspecific and may represent mild marrow contusion. Dictated by: Cecelia Pretty M.D. on 02/14/2024 at 10:03 Approved by: Cecelia Pretty M.D. on 02/14/2024 at 10:11
== END ==
PROVIDERS: Family Provider Family Medicine; PCP Family Medicine; Referring Provider Family Medicine; Visit Provider Family Medicine
DX: R60.0 Localized edema (principal); M54.50 Low back pain, unspecified; G89.29 Other chronic pain
CPT/HCPCS: 72195

== ENCOUNTER → 2024-02-24 10:20 | Outpatient (CLI) | payer BC, SELFPAY ==
[2023-11-09 16:50] VITALS: BMI 20.5
--- NOTE | 2024-02-24 10:22 | DI.RAD.S_ITS ---
PROCEDURE: XR DEXA AXIAL SKELETON INDICATIONS: Bone marrow edema and back pain COMPARISON: [facility], MR, MR PELVIS WO ISSA, 02/10/2024, 19:48. FINDINGS: Lumbar Spine: Bone mineral density 1.162 g/cm2, T score not applicable. Left Femoral Neck: Bone mineral density 0.78 g/cm2, T score -0.2 Right Femoral Neck: Bone mineral density 0.811 g/cm2, T score not applicable Left Forearm: Bone mineral density 0.625 g/cm2, T score not applicable Fracture Risk Calculation (when applicable): 10-year fracture risk of a major osteoporotic fracture: 1.9 - 2.0% % and of a hip fracture: 0.1%. (T score greater or equal to -1.0 to: NORMAL) (T score from -1.1 to -2.4: OSTEOPENIA) (T score less than or equal to -2.5: OSTEOPOROSIS) IMPRESSION: No osteoporosis or osteopenia. Follow-up guidelines as follows: Osteoporosis: Consider a repeat DEXA and Vertebral Fracture Assessment (VFA) exam in 2 years or sooner if medically necessary, to reassess this patient's status. Osteopenia: Consider a repeat DEXA in 2-3 years to reassess this patient's status, or if there is a new clinical indication. Normal: Consider a repeat DEXA in 5 years or sooner, or if there is a new clinical indication. All treatment decisions require clinical judgment and consideration of individual patient factors, including patient preferences, comorbidities, previous drug use, risk factors not captured in the FRAX model (e.g., frailty, falls, vitamin D deficiency, increased bone turnover, interval significant decline in bone density ) and possible under- or over-estimation of fracture risk by FRAX. In addition, the NOF Guide recommends that FDA-approved medical therapies be considered in postmenopausal women and men age >= 50 years with a: * Hip or vertebral (clinical or morphometric) fracture * T-score of <=-2.5 at the spine or hip * Ten-year fracture probability by FRAX of >= 3% for hip fracture or >=20% for major osteoporotic fracture. People with diagnosed cases of osteoporosis or at high risk for fracture should have regular bone mineral density tests. For patients eligible for Medicare, routine testing is allowed once every 2 years. The testing frequency can be increased to one year for patients who have rapidly progressing disease, those who are receiving or discontinuing medical therapy to restore bone mass, or have additional risk factors. Dictated by: Blaine Black M.D. on 02/27/2024 at 6:44 Approved by: Blaine Black M.D. on 02/27/2024 at 6:48
[2024-02-24 11:44] LABS: Add Manual Diff / Slide Review NO; Basophils Absolute Auto 0 /uL (0-100); Basophils Percent Auto 0.6 % (0-2); Eosinophils Absolute Auto 0 /uL (0-450); Eosinophils Percent Auto 0.5 % (2-4); Hematocrit 41.6 % (36-46); Hemoglobin 13.9 g/dL (12.0-16.0); Lymphocytes Absolute Auto 1500 /uL (1100-4500); Lymphocytes Percent Auto 28.4 % (25-40); Mean Corpuscular HGB Conc 33.4 % (30-36); Mean Corpuscular Hemoglobin 30.5 PG (26-34); Mean Corpuscular Volume 91.4 fL (80-100); Monocytes Absolute Auto 300 /uL (0-900); Monocytes Percent Auto 5.3 % (3-14); Neutrophils Absolute Auto 3400 /uL (1500-7000); Neutrophils Percent Auto 65.2 % (50-75); Platelet Count 259 X10^3/uL (150-400); Red Blood Cell Count 4.56 X10^6/uL (4.0-5.2); White Blood Cell Count 5.2 X10^3/uL (4.5-11.0)
[2024-02-24 12:15] LABS: HEMOLYSIS < 15 (0-50)
[2024-02-24 12:16] LABS: INR 1.1 (0.9-1.3); Prothrombin Time 12.1 SECONDS (9.4-12.5)
[2024-02-24 12:21] LABS: Alanine Aminotransferase 19 IU/L (<35); Albumin 4.5 g/dL (3.5-5.0); Albumin Globulin Ratio 1.5 (1.0-2.8); Alkaline Phosphatase 40 U/L (38-126); Aspartate Aminotransferase 27 IU/L (14-36); BUN Creatinine Ratio 17.8 (6-22); Blood Urea Nitrogen 16 mg/dL (7-17); Calcium 9.6 mg/dL (8.4-10.2); Carbon Dioxide 25 mmol/L (22-32); Chloride 104 mmol/L (98-107); Estimated Glomerular Filt Rate > 60 mL/min (>60); Glucose 83 mg/dL (70-100); Potassium 4.2 mmol/L (3.4-5.1); Sodium 136 mmol/L (137-145); Total Protein 7.5 g/dL (6.3-8.2)
[2024-02-24 12:32] LABS: Luteinizing Hormone 2.66 mIU/mL; Vitamin D 25 Hydroxy (D3) 42.2 ng/mL (30.0-100.0)
[2024-02-24 12:47] LABS: TSH w/ Reflex to FT4 0.79 uIU/mL (0.47-4.68)
[2024-02-27 16:46] LABS: Testosterone 71.7 ng/dL (5.71-77.0)
[2024-02-28 15:10] LABS: Estradiol 33.3 pg/mL (.); Estriol,Serum <0.1 ng/mL (.); Estrone,Serum 56 pg/mL (.)
== END ==
LOC: RAD 10:21
PROVIDERS: Family Provider Family Medicine; PCP Family Medicine; Referring Provider Family Medicine; Visit Provider Family Medicine
DX: Z13.820 Encounter for screening for osteoporosis; N92.1 Excessive and frequent menstruation with irregular cycle; N94.6 Dysmenorrhea, unspecified; R93.7 Abnormal findings on diagnostic imaging of other parts of musculoskeletal system; M54.50 Low back pain, unspecified; R10.2 Pelvic and perineal pain; G89.29 Other chronic pain
CPT/HCPCS: 36415; 77080; 77081; 80053; 82306; 82670; 82677; 82679; 83001; 83002; 84403; 84443; 85025; 85610; 86140

== ENCOUNTER → 2024-03-19 19:46 | Outpatient (CLI) | payer BC, SELFPAY ==
[2023-11-09 16:50] VITALS: BMI 20.5
--- NOTE | 2024-03-19 19:48 | DI.MRI.S_ITS ---
PROCEDURE: MR LUMBAR SPINE WO CON INDICATIONS: LBP UNIMPROVED W/MANY TX'S AND <6WK OF PT TECHNIQUE: Noncontrast sagittal T1 spin echo and T2 fast echo, sagittal STIR, and T2 fast spin echo through the lumbar spine. In cases with scoliosis, additional coronal T2 fast spin echo may be performed. COMPARISON: [facility], MR, MR PELVIS WO CON, 02/10/2024, 19:48. FINDINGS: Image quality: Excellent. Anatomy: There are 5 nonrib-bearing lumbar vertebrae. Bones: Marrow signal within normal limits. The vertebral body heights are preserved. Alignment: Preservation of lumbar lordosis. Discs: Minimal disc desiccation and height loss at L5-S1. Otherwise, preservation of the intervertebral disc heights and signal. Spinal cord: The conus medullaris ends at the level of L1-L2. No abnormal cord signal. Muscles: Overall muscle bulk is preserved. Prevertebral: No prevertebral soft tissue edema. No abdominal aortic aneurysm. No abnormal prevertebral soft tissue mass in the [id number]. Multilevel findings: Mild facet arthropathy at the bilateral L2-L3 and L5-S1 levels. Moderate facet arthropathy at the L4-L5 level with associated mild edema around the left facet joint (5/13). INDIVIDUAL LEVELS: T12-L1: No central canal stenosis. No foraminal stenosis. L1-L2: No central canal stenosis. No foraminal stenosis. L2-L3: No central canal stenosis. No foraminal stenosis. L3-L4: No central canal stenosis. No foraminal stenosis. L4-L5: Minimal disc bulge that slightly effaces the ventral thecal sac without any central canal stenosis. No foraminal stenosis. L5-S1: Minimal disc bulge. No central canal stenosis. No foraminal stenosis. IMPRESSION: 1. No significant central canal or foraminal stenosis. 2. Mild-moderate facet arthropathy, most conspicuous at the L4-L5 level with associated mild edema around the left facet joint. Please correlate for point tenderness. Dictated by: Blaine Black M.D. on 03/20/2024 at 8:27 Approved by: Blaine Black M.D. on 03/20/2024 at 8:41
== END ==
PROVIDERS: Family Provider Family Medicine; PCP Family Medicine; Referring Provider Family Medicine; Visit Provider Family Medicine
DX: M47.817 Spondylosis without myelopathy or radiculopathy, lumbosacral region (principal); M46.1 Sacroiliitis, not elsewhere classified; M47.816 Spondylosis without myelopathy or radiculopathy, lumbar region; M54.50 Low back pain, unspecified; R93.7 Abnormal findings on diagnostic imaging of other parts of musculoskeletal system; G89.29 Other chronic pain
CPT/HCPCS: 72148